=== PATIENT | male | born 1970 | race Caucasian/White ===

== ENCOUNTER 2021-05-06 19:18 | Emergency (ER) | payer BC, SELFPAY ==
--- NOTE | ~2021-05-06 | XR_ITS ---
EXAMINATION: XR finger 3rd LT min 2V DATE: 05/06/2021 20:06 INDICATION: Left hand third digit injury. TECHNIQUE: 3 views of left hand third digit were obtained. COMPARISON: None. FINDINGS: There is an open comminuted fracture of tuft of third distal phalanx. The main distal fract ure fragment demonstrates displacement and 6 mm distraction. 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 IMPRESSION: 1. Open comminuted fracture of tuft of third distal phalanx. Reviewed, dictated and finalized at location A.
[2021-05-06 19:26] VITALS: BP 160/97; PULSE 112; RESP 14; TEMP 36.7; O2SAT 99
[2021-05-06 19:38] VITALS: BP 160/98; PULSE 90; RESP 18; TEMP 36.7; O2SAT 99
[2021-05-06] MEDS: ceFAZolin SODIUM 1 GM VIAL IM (20:17)
[2021-05-06] MEDS: ONDANSETRON INJ 4 MG/2 ML VIAL IV PUSH (20:17)
[2021-05-06] MEDS: MORPHINE SULFATE (*CRX) 4 MG/ML INJ IV PUSH (20:17)
[2021-05-06] MEDS: TETANUS,DIPHTHERIA,AC PERTUSSIS ADULT (0.5 ML) BOOSTRIX IM (20:18)
--- NOTE | 2021-05-06 20:32 | PC.NURSE ---
Pt is refusing ambulance to transfer to [place]. VIVEK Mccarthy aware. EMTALA form filled out and marked Private Car for transportation.
--- NOTE | 2021-05-06 20:32 | ED.UPPEXIN ---
HPI - Extremity Injury (Upper) General Chief Complaint: Extremity Injury, Upper <Marie Earl PA-C - Last Filed: 05/06/21 20:38> Stated Complaint: sledge hammer vs finger <Marie Earl PA-C - Last Filed: 05/06/21 20:38> Time Seen by Provider: 05/06/21 19:33 <Marie Earl PA-C - Last Filed: 05/06/21 20:38> Source: patient <Marie Earl PA-C - Last Filed: 05/06/21 20:38> Mode of arrival: ambulatory <Marie Earl PA-C - Last Filed: 05/06/21 20:38> Limitations: no limitations <Marie Earl PA-C - Last Filed: 05/06/21 20:38> History of Present Illness HPI narrative: This is a 50-year-old male that presents the emergency department for injury to the left third finger sustained just prior to arrival. Reports he smashed the end of his finger with the sledgehammer. He is unsure of his last tetanus vaccine. Reports pain to the area. Denies decreased range of motion. <Marie Earl PA-C - Last Filed: 05/06/21 20:38> Related Data Allergies/Adverse Reactions: Allergies Allergy/AdvReac Type Severity Reaction Status Date / Time No Known Allergies Allergy Verified 05/06/21 19:42 <Marie Earl PA-C - Last Filed: 05/06/21 20:38> Review of Systems Review of Systems: CONSTITUTIONAL: Denies fever SKIN: Reports laceration MUSCULOSKELETAL: Reports joint pain, and myalgia. <Marie Earl PA-C - Last Filed: 05/06/21 20:38> All systems reviewed & are unremarkable except as noted in HPI and below <Marie Earl PA-C - Last Filed: 05/06/21 20:38> PMFSH Past Medical History Medical History: Medical History (Updated 05/06/21 @ 20:38 by Marie Earl PA-C) History of hypertension <Marie Earl PA-C - Last Filed: 05/06/21 20:38> Social History Social History: Social History (Updated 05/06/21 @ 20:34 by Marie Earl PA-C) Substance use: never <Marie Earl PA-C - Last Filed: 05/06/21 20:38> Exam Narrative: GENERAL: Well-appearing, well-nourished, and in no acute distress. HEAD: Normocephalic, atraumatic. EYES: EOMI. EXTREMITIES: Normal range of motion. Left third finger distal phalanx with partial amputation. The skin is approximated by less than a centimeter of tissue SKIN: Warm, dry, no rash. NEURO: No focal deficits. Alert and oriented x3. PSYCH: Normal mood and affect <Marie Earl PA-C - Last Filed: 05/06/21 20:38> Course GREENHOUSE ASSISTANT/PA Physician Supervision For this encounter, I have reviewed the PA documentation, treatment plan and medical decision making: And I have had [id number] time with the patient. On exam distal left third finger has diffuse injury through nailbed with open wound present discussed with patient need for transfer for hand surgeon evaluation all questions were answered patient in agreement at this time <Derek Zavala DO - Last Filed: 05/06/21 20:51> Consultations Consultation #1: Spoke with Dr. Baker with [facility] who recommends transfer to the ER for further management. <Marie Earl PA-C - Last Filed: 05/06/21 20:38> Date: 05/06/21 <Marie Earl PA-C - Last Filed: 05/06/21 20:38> Time: 20:36 <Marie Earl PA-C - Last Filed: 05/06/21 20:38> Consultation #2: Dr. Ding accepts transfer to [facility] <Marie Earl PA-C - Last Filed: 05/06/21 20:38> Date: 05/06/21 <Marie Eral PA-C - Last Filed: 05/06/21 20:38> Time: 20:36 <Marie Earl PA-C - Last Filed: 05/06/21 20:38> Vital Signs Vital signs: Vital Signs Temperature 98.1 F 05/06/21 19:26 Pulse Rate 112 H 05/06/21 19:26 Respiratory Rate 14 05/06/21 19:26 Blood Pressure 160/97 H 05/06/21 19:26 Pulse Oximetry 99 05/06/21 19:26 Temperature 98.0 F 05/06/21 19:38 Pulse Rate 90 05/06/21 19:38 Respiratory Rate 18 05/06/21 19:38 Blood Pressure 160/98 H 05/06/21 19:38 Pulse Oximetry 99 05/06/21 19:38 <Marie Earl
[2021-05-06 20:56] VITALS: BP 122/66; PULSE 78; RESP 18; O2SAT 99
== END 2021-05-06 20:59 | disposition short-term general hospital (02) ==
PROVIDERS: Emergency Provider Emergency Medicine; PCP Family Medicine
DX: S68.623A Partial traumatic transphalangeal amputation of left middle finger, initial encounter (principal); W23.0XXA Caught, crushed, jammed, or pinched between moving objects, initial encounter; Z23 Encounter for immunization
CPT/HCPCS: 12001; 73140; 90471; 90715; 96372; 96374; 96375; 99284; J0690; J2270; J2405